=== PATIENT | male | born 1955 | race Caucasian/White ===

== ENCOUNTER 2018-03-03 10:33 | Observation (INO) | payer OTHER ==
[2018-03-03] MEDS ORDERED: NITROGLYCERIN OINT 1 INCH/GM PACKET TOPICAL STA (10:54)
[2018-03-03] MEDS ORDERED: ASPIRIN 81 MG PO STA (10:54)
--- NOTE | 2018-03-03 10:58 | ED ---
General Adult HPI - General Chief complaint: Shortness of Breath Stated complaint: Chest pain Time Seen by Provider: 03/03/18 10:40 Source: EMS, RN notes reviewed Mode of arrival: EMS Limitations: no limitations - History of Present Illness Initial comments: This is a 62-year-old male who is morbidly obese comes into the emergency Department for chest pain today. Patient states he probably has high blood pressure high cholesterol and maybe diabetes pain never goes the doctor to get checked. Patient states today he was short of breath and having some chest pressure went to his doctor's office his blood pressure was extremely high the EMS was called and they gave him nitroglycerin which removed his chest pain shortest breath immediately. Patient states currently he has no symptoms. Patient states the pain and shortness of breath for quite significant at the time but again now they're gone per patient denies any nausea patient denied any diaphoretic episodes. Patient is also morbidly obese. Patient states she has chronic cellulitis of lower legs but he does not follow up for anybody for it. Patient denies any lightheadedness dizziness or near syncopal episode. Patient denies any palpitations. - Related Data Home Medications Medication Instructions Recorded Confirmed Hydrochlorothiazide 25 mg PO DIRECTED 03/03/18 03/03/18 Ibuprofen [Motrin Ib] 400 mg PO Q6H PRN 03/03/18 03/03/18 guaiFENesin [Mucinex] 600 mg PO BID PRN 03/03/18 03/03/18 Allergies Allergy/AdvReac Type Severity Reaction Status Date / Time No Known Allergies Allergy Verified 03/03/18 11:33 Review of Systems ROS Statement: Those systems with pertinent positive or pertinent negative responses have been documented in the HPI. ROS Other: All systems not noted in ROS Statement are negative. Past Medical History Past Medical History: Hyperlipidemia, Hypertension, Pneumonia History of Any Multi-Drug Resistant Organisms: None Reported Past Surgical History: No Surgical Hx Reported Past Psychological History: No Psychological Hx Reported Smoking Status: Never smoker Past Alcohol Use History: None Reported Past Drug Use History: None Reported General Exam - General Exam Comments Initial Comments: GENERAL: Patient is well-developed and well-nourished. Patient is nontoxic and well- hydrated and is in no acute distress. ENT: Neck is soft and supple. No significant lymphadenopathy is noted. Oropharynx is clear. Moist mucous membranes. Neck has full range of motion without eliciting any pain. EYES: The sclera were anicteric and conjunctiva were pink and moist. Extraocular movements were intact and pupils were equal round and reactive to light. Eyelids were unremarkable. PULMONARY: Unlabored respirations. Good breath sounds bilaterally. No audible rales rhonchi or wheezing was noted. CARDIOVASCULAR: There is a regular rate and rhythm without any murmurs gallops or rubs. ABDOMEN: Soft and nontender with normal bowel sounds. Patient is morbidly obese No palpable organomegaly was noted. There is no palpable pulsatile mass. SKIN: Skin is clear with no lesions or rashes and otherwise unremarkable. NEUROLOGIC: Patient is alert and oriented x3. Cranial nerves II through XII are grossly intact. Motor and sensory are also intact. Normal speech, volume and content. Symmetrical smile. MUSCULOSKELETAL: Normal extremities with adequate strength and full range of motion. Patient has chronic sinusitis bilaterally no acute tenderness LYMPHATICS: No significant lymphadenopathy is noted PSYCHIATRIC: Normal psychiatric evaluation. Limitations: no limitations Course Vital Signs 03/03/18 03/03/18 10:38 10:41 Temperature 97.6 F Pulse Rate 88 Respiratory 16 16 Rate Blood Pressure 209/103 O2 Sat by Pulse 98 Oximetry Medical Decision Making - Medical Decision Making EKG shows normal sinus rhythm at 82 bpm OK interval 298 QRS is under 18 QT interval is 424 QTC is 495 per patient's EKG shows no ST segment elevation or depression or T wave abnormalities are noted. Chest x-ray showed a possible right lower lobe infiltrate however the patient was asymptomatic and had no white count or fever I spoke with Dr. Acosta about this and that I wasn't going to initially treat the patient but was going to start the patient heparin for the chest pain that the patient has had. I labeled the patient has an unstable angina patient. - Lab Data Result diagrams: 03/03/18 11:18 03/03/18 11:18 Lab Results 03/03/18 03/03/18 03/03/18 Range/Units 11:18 11:18 11:18 WBC 8.7 (3.8-10.6) k/uL RBC 4.86 (4.30-5.90) m/uL Hgb 13.3 (13.0-17.5) gm/dL Hct 40.0 (39.0-53.0) % MCV 82.4 (80.0-100.0) fL MCH 27.5 (25.0-35.0) pg MCHC 33.3 (31.0-37.0) g/dL RDW 16.2 H (11.5-15.5) % Plt Count 262 (150-450) k/uL Neutrophils % 73 % Lymphocytes % 16 % Monocytes % 5 % Eosinophils % 2 % Basophils % 1 % Neutrophils # 6.4 (1.3-7.7) k/uL Lymphocytes # 1.4 (1.0-4.8) k/uL Monocytes # 0.4 (0-1.0) k/uL Eosinophils # 0.2 (0-0.7) k/uL Basophils # 0.0 (0-0.2) k/uL Poikilocytosis Slight Anisocytosis Slight PT (9.0-12.0) sec INR (<1.2) APTT (22.0-30.0) sec Sodium 141 (137-145) mmol/L Potassium 4.2 (3.5-5.1) mmol/L Chloride 106 (98-107) mmol/L Carbon Dioxide 27 (22-30) mmol/L Anion Gap 8 mmol/L BUN 16 (9-20) mg/dL Creatinine 0.70 (0.66-1.25) mg/dL Est GFR (CKD-EPI)AfAm >90 (>60 ml/min/1.73 sqM) Est GFR (CKD-EPI)NonAf >90 (>60 ml/min/1.73 sqM) Glucose 127 H (74-99) mg/dL Calcium 9.2 (8.4-10.2) mg/dL Magnesium 1.8 (1.6-2.3) mg/dL Total Bilirubin 0.9 (0.2-1.3) mg/dL AST 18 (17-59) U/L ALT 27 (21-72) U/L Alkaline Phosphatase 86 (38-126) U/L Total Creatine Kinase 78 (55-170) U/L CK-MB (CK-2) 1.0 (0.0-2.4) ng/mL CK-MB (CK-2) Rel Index 1.3 Troponin I 0.032 (0.000-0.034) ng/mL Total Protein 7.0 (6.3-8.2) g/dL Albumin 3.7 (3.5-5.0) g/dL 03/03/18 Range/Units 11:18 WBC (3.8-10.6) k/uL RBC (4.30-5.90) m/uL Hgb (13.0-17.5) gm/dL Hct (39.0-53.0) % MCV (80.0-100.0) fL MCH (25.0-35.0) pg MCHC (31.0-37.0) g/dL RDW (11.5-15.5) % Plt Count (150-450) k/uL Neutrophils % % Lymphocytes % % Monocytes % % Eosinophils % % Basophils % % Neutrophils # (1.3-7.7) k/uL Lymphocytes # (1.0-4.8) k/uL Monocytes # (0-1.0) k/uL Eosinophils # (0-0.7) k/uL Basophils # (0-0.2) k/uL Poikilocytosis Anisocytosis PT 10.2 (9.0-12.0) sec INR 1.0 (<1.2) APTT 26.9 (22.0-30.0) sec Sodium (137-145) mmol/L Potassium (3.5-5.1) mmol/L Chloride (98-107) mmol/L Carbon Dioxide (22-30) mmol/L Anion Gap mmol/L BUN (9-20) mg/dL Creatinine (0.66-1.25) mg/dL Est GFR (CKD-EPI)AfAm (>60 ml/min/1.73 sqM) Est GFR (CKD-EPI)NonAf (>60 ml/min/1.73 sqM) Glucose (74-99) mg/dL Calcium (8.4-10.2) mg/dL Magnesium (1.6-2.3) mg/dL Total Bilirubin (0.2-1.3) mg/dL AST (17-59) U/L ALT (21-72) U/L Alkaline Phosphatase (38-126) U/L Total Creatine Kinase (55-170) U/L CK-MB (CK-2) (0.0-2.4) ng/mL CK-MB (CK-2) Rel Index Troponin I (0.000-0.034) ng/mL Total Protein (6.3-8.2) g/dL Albumin (3.5-5.0) g/dL Critical Care Time Critical Care Time: Yes Total Critical Care Time: 35 Disposition Clinical Impression: Unstable angina, Hypertensive urgency Disposition: ADMITTED IP TO THIS HOSP Referrals: Sedrick Quintero MD [Primary Care Provider] - 1-2 days Time of Disposition: 12:44
[2018-03-03 11:43] LABS: Anisocytosis Slight; Basophils % (A) 1 %; Eosinophils # (A) 0.2 k/uL (0-0.7); Eosinophils % (A) 2 %; HGB 13.3 gm/dL (13.0-17.5); Lymphocytes # (A) 1.4 k/uL (1.0-4.8); Lymphocytes % (A) 16 %; MCH 27.5 pg (25.0-35.0); MCHC 33.3 g/dL (31.0-37.0); MCV 82.4 fL (80.0-100.0); Mean Platelet Volume 6.5; Monocytes # (A) 0.4 k/uL (0-1.0); Monocytes % (A) 5 %; Neutrophils # (A) 6.4 k/uL (1.3-7.7); Neutrophils % (A) 73 %; Platelet Count 262 k/uL (150-450); Poikilocytosis Slight; RBC 4.86 m/uL (4.30-5.90); RDW 16.2 % (11.5-15.5); WBC 8.7 k/uL (3.8-10.6)
[2018-03-03 11:48] LABS: Partial Thromboplastin Time 26.9 sec (22.0-30.0); Prothrombin Time 10.2 sec (9.0-12.0)
[2018-03-03 11:50] LABS: ALT 27 U/L (21-72); AST 18 U/L (17-59); Albumin 3.7 g/dL (3.5-5.0); Alkaline Phosphatase 86 U/L (38-126); Anion Gap 8 mmol/L; Blood Urea Nitrogen 16 mg/dL (9-20); Calcium 9.2 mg/dL (8.4-10.2); Carbon Dioxide 27 mmol/L (22-30); Chloride 106 mmol/L (98-107); Glucose 127 mg/dL (74-99); Magnesium 1.8 mg/dL (1.6-2.3); Potassium 4.2 mmol/L (3.5-5.1); Sodium 141 mmol/L (137-145); Total Bilirubin 0.9 mg/dL (0.2-1.3)
--- NOTE | 2018-03-03 12:14 | XR ---
EXAMINATION TYPE: XR chest 2V DATE OF EXAM: 03/03/2018 COMPARISON: None HISTORY: Shortness of breath and chest pain TECHNIQUE: Frontal and lateral views of the chest are obtained. FINDINGS: There is a right infrahilar and basilar reticular opacity. Coarsened interstitial lung mar kings are seen throughout the lung bases. Cardiomediastinal silhouette is enlarged. No sizable pleura l effusion or pneumothorax osseous structures appear grossly intact. IMPRESSION: Findings suspicious for right lower lobe pneumonia with multifocal atelectasis.
[2018-03-03 12:22] LABS: Troponin I 0.032 ng/mL (0.000-0.034)
[2018-03-03] MEDS ORDERED: hydrALAZINE HCL 20 MG/ML 1 ML VIAL IVP STA (12:29)
[2018-03-03] MEDS ORDERED: NITROGLYCERIN SL TABS 0.4 MG TAB SUBLINGUAL PRN (12:45)
[2018-03-03] MEDS ORDERED: HEPARIN SODIUM,PORCINE 5,000 UNIT/ML 1 ML VIAL IV ONE (12:45)
[2018-03-03] MEDS ORDERED: HEPARIN SOD,PORK IN 0.45% NACL 25,000 UNIT in 0.45% NACL 1 250ML.BAG IV SCH (12:45)
[2018-03-03] MEDS ORDERED: ACETAMINOPHEN TAB 325 MG TAB PO PRN (15:54)
[2018-03-03] MEDS ORDERED: NALOXONE 0.4 MG/ML 1 ML VIAL IV PRN (15:54)
[2018-03-03] MEDS ORDERED: ONDANSETRON 4 MG/2 ML VIAL IVP PRN (15:54)
[2018-03-03] MEDS ORDERED: HYDROcodone/APAP 5-325MG 1 EACH TAB PO PRN (15:54)
--- NOTE | 2018-03-03 16:48 | P.HPIM ---
History of Present Illness H&P Date: 03/03/18 Chief Complaint: SHORTNESS OF BREATH Patient is a 62-year-old male past medical history of untreated hypertension, borderline diabetes, and morbid obesity who presented to the ER at the direction of his primary care physician for EKG abnormalities. Patient reports dyspnea on exertion after having a cold. In the ER he underwent extensive evaluation. His initial EKG showed normal sinus rhythm at a rate of 82 with a HI interval of 189, QRS interval 118 and QTC of [address]-T wave changes. Initial laboratory analysis was unremarkable. Chest x-ray showed a right lower lobe infiltrate. His initial blood pressure on arrival to the ER was 209/103. He ER he received a dose of aspirin. Heparin. And had Nitropaste placed. He continued to struggle with dyspnea. Patient seen and examined at bedside ER. He reports that he has been struggling with nasal congestion, runny nose, phlegm, and cough for 2 weeks. He states that his congestion and runny nose with gotten better however his dyspnea on exertion has not improved and may have worsened slightly. He continues to have an intermittent cough that is productive of yellow to brown sputum. He reports increasing bilateral lower extremity edema 1 week. He has not recently been on any antibiotics. He denies any fevers or chills. He has not had a flu shot this year. He has not had any nausea, vomiting, diarrhea, constipation, or dysuria. He denies any throat sore throat or postnasal drip. He has chronic venous stasis on his bilateral lower extremities. He denies any chronic wounds. He has not had any Dopplers recently. He reports no chest pain , palpitations, lightheadedness, dizziness, or syncopal events. He had been to the doctor in quite some time but today he went and saw the nurse practitioner at Dr. Walden's office. There they preformed EKG and found an abnormality and sent him to the hospital. Review of Systems Pertinent positives and negatives as discussed in HPI, a complete review of systems was performed and all other systems are negative. Past Medical History Past Medical History: Hypertension Additional Past Medical History / Comment(s): HTN- Has not been treated History of Any Multi-Drug Resistant Organisms: None Reported Past Surgical History: No Surgical Hx Reported Past Psychological History: No Psychological Hx Reported Smoking Status: Never smoker Past Alcohol Use History: None Reported Past Drug Use History: None Reported Additional History: Lives with niece, Works selling [employer] - Past Family History Father Family Medical History: Coronary Artery Disease (CAD) ([place] in his 60s) Medications and Allergies Home Medications Medication Instructions Recorded Confirmed Type Hydrochlorothiazide 25 mg PO DIRECTED 03/03/18 03/03/18 History Ibuprofen [Motrin Ib] 400 mg PO Q6H PRN 03/03/18 03/03/18 History guaiFENesin [Mucinex] 600 mg PO BID PRN 03/03/18 03/03/18 History Allergies Allergy/AdvReac Type Severity Reaction Status Date / Time No Known Allergies Allergy Verified 03/03/18 11:33 Physical Exam Osteopathic Statement: *. No significant issues noted on an osteopathic structural exam other than those noted in the History and Physical/Consult. Vitals: Vital Signs Temp Pulse Resp BP Pulse Ox 03/03/18 13:30 81 13 152/95 95 03/03/18 13:00 71 18 178/97 96 03/03/18 12:30 68 18 185/99 95 03/03/18 12:00 81 20 158/123 96 03/03/18 11:30 79 18 206/122 96 03/03/18 11:00 202/126 95 03/03/18 10:45 92 L 03/03/18 10:41 16 03/03/18 10:38 97.6 F 88 16 209/103 98 Intake and Output 03/03/18 03/03/18 03/03/18 06:59 14:59 22:59 Other: Weight 212.735 kg General: non toxic, no distress, appears older than stated age, Obese Derm: keegan and dusky appearance right calf with edema, no unusual ecchymoses, warm, dry Head: atraumatic, normocephalic, symmetric Eyes: EOMI, no lid lag, anicteric sclera, pupils equal round reactive to light ENT: Nose and ears atraumatic, no thrush, no pharyngeal erythema, no PND Neck: No thyromegaly, no cervical lymphadenopathy, trachea midline, supple Mouth: no lip lesion, mucus membranes moist, poor dentition Cardiovascular: S1S2 reg, no murmur, positive posterior tibial pulse bilateral, 2+ edema, capillary refill less than 2 seconds Lungs: decreased bs right base, no rhonchi, no rales , no accessory muscle use Abdominal: soft, nontender to palpation, no guarding, no appreciable organomegaly, normal bowel sounds Ext: no gross muscle atrophy, muscle strength 5 out of 5 in all 4 extremities grossly, no contractures, Neuro: CN II-XI grossly intact, light touch intact all 4 extremities, finger to nose within normal limits, Psych: Alert, oriented, appropriate affect Results CBC & Chem 7: 03/03/18 11:18 03/03/18 11:18 Labs: Abnormal Lab Results - Last 24 Hours (Table) 03/03/18 03/03/18 Range/Units 11:18 11:18 RDW 16.2 H (11.5-15.5) % Glucose 127 H (74-99) mg/dL Chest x-ray: report reviewed, image reviewed Thrombosis Risk Factor Assmnt - DVT/VTE Prophylaxis DVT/VTE Prophylaxis: Pharmacologic Prophylaxis ordered - Choose All That Apply Each Factor Represents 1 point: Age 41-60 years, Obesity (BMI >25), Swollen legs (current) Thrombosis Risk Factor Assessment Total Risk Factor Score: 3 Thrombosis Risk Factor Assessment Level: Moderate Risk Assessment and Plan Assessment: Community-acquired pneumonia -Rocephin, doxycycline secondary to prolonged QT will avoid Zithromax at this point in time -IV fluids -Sputum culture -Follow chest x-ray until clear Dyspnea on exertion -Check CTA of the chest to rule out pulmonary embolism as additional possible source of dyspnea as well as eliminating other causes of dyspnea -Check echo to rule out CHF or valvular disease Prolonged QT -Telemetry -Cardiology consult Hypertensive urgency -Improved with nitro patch -Initiate norvasc - follow BP Morbid obesity - sructured outpatient weight loss Probable PVD - outpatient ardio follow-up for KEISHA The patient is admitted with an anticipated greater than 2 midnight stay for evaluation of pneumonia. Surrogate decision-maker: Niece CODE STATUS: Full, no trach or prolonged ventilation DVT prophylaxis: Lovenox Discussed with: Patient, ED physician Anticipated discharge date: 1-[address]: home A total of 45 minutes was spent on the care of this complex patient more than 50 % of the time was spent in counseling and care coordination.
[2018-03-03] MEDS: SODIUM CHLORIDE 0.9% 1,000 ML IV SCH (16:49)
[2018-03-03 18:00] LABS: Troponin I 0.027 ng/mL (0.000-0.034)
--- NOTE | 2018-03-03 19:23 | CT ---
EXAMINATION TYPE: CT angio chest DATE OF EXAM: 03/03/2018 5:35 PM COMPARISON: None HISTORY: SOB, unstable angina CT DLP: 1138.2 mGycm Automated exposure control for dose reduction was used. CONTRAST: CTA scan of the thorax is performed with IV Contrast, patient injected with 100 mL of Isovue 300, pul monary embolism protocol. . FINDINGS: There are 3-D post processed images. There are a few paratracheal lymph nodes that measure up to 1 cm. There are no hilar masses. There is no pericardial effusion. There is patchy atelectasis and infiltrate at the posterior lung bases. The re is mild pleural thickening right lung base. There is a 1 cm area of focal pleural thickening left posterior lung base. There is normal contrast opacification of the pulmonary arteries. I see no filling defect. . The asce nding aorta measures 4.5 cm. There is no evidence of aortic dissection. There is spurring in the thoracic spine. I see no bony destructive process. IMPRESSION: NO EVIDENCE OF PULMONARY EMBOLISM. MILD INFILTRATE AND ATELECTASIS AT THE LUNG BASES WITH PLEURAL THI CKENING. THIS IS WORSE ON THE RIGHT SIDE.
[2018-03-03] MEDS: NITROGLYCERIN OINT 1 INCH/GM PACKET TOPICAL SCH ×2 (19:24→23:03)
[2018-03-03] MEDS ORDERED: hydrALAZINE HCL 25 MG TAB PO STA ×2 (20:43→23:10)
[2018-03-03] MEDS: DOXYCYCLINE 100 MG CAP PO SCH (21:45)
[2018-03-04 00:24] LABS: Troponin I 0.023 ng/mL (0.000-0.034)
[2018-03-04] MEDS: SODIUM CHLORIDE 0.9% 1,000 ML IV SCH (00:51)
[2018-03-04] MEDS: NITROGLYCERIN OINT 1 INCH/GM PACKET TOPICAL SCH ×2 (04:59→11:15)
[2018-03-04 07:04] LABS: Anisocytosis Slight; HCT 36.7 % (39.0-53.0); HGB 12.1 gm/dL (13.0-17.5); MCH 27.3 pg (25.0-35.0); MCV 82.9 fL (80.0-100.0); Platelet Count 249 k/uL (150-450); Poikilocytosis Slight; RBC 4.43 m/uL (4.30-5.90); RDW 16.2 % (11.5-15.5); WBC 12.5 k/uL (3.8-10.6)
[2018-03-04 07:17] LABS: Anion Gap 9 mmol/L; Blood Urea Nitrogen 12 mg/dL (9-20); Carbon Dioxide 22 mmol/L (22-30); Chloride 103 mmol/L (98-107); Cholesterol 181 mg/dL (<200); Glucose 127 mg/dL (74-99); HDL Cholesterol 37 mg/dL (40-60); LDL Cholesterol,Calculated 119 mg/dL (0-99); Magnesium 1.7 mg/dL (1.6-2.3); Phosphorus 3.4 mg/dL (2.5-4.5); Sodium 134 mmol/L (137-145); Triglycerides 126 mg/dL (<150)
[2018-03-04] MEDS: ENOXAPARIN 40 MG/0.4 ML SYRINGE SQ SCH (08:40)
[2018-03-04] MEDS ORDERED: METOPROLOL TARTRATE 25 MG TAB PO SCH (09:00)
[2018-03-04] MEDS ORDERED: amLODIPine 5 MG TAB PO SCH (09:00)
[2018-03-04] MEDS ORDERED: ASPIRIN 325 MG TAB PO SCH (09:00)
--- NOTE | 2018-03-04 11:14 | ECHOF ---
Referral Reason:chf MEASUREMENTS -------- HEIGHT: 193.0 cm WEIGHT: 212.7 kg BP: 152/95 RVIDd: 2.6 cm (< 3.3) IVSd: 1.6 cm (0.6 - 1.1) LVIDd: 5.9 cm (3.9 - 5.3) LVPWd: 1.6 cm (0.6 - 1.1) IVSs: 1.8 cm LVIDs: 4.2 cm LVPWs: 1.9 cm Ao Diam: 3.0 cm (2.0 - 3.7) AV Cusp: 1.2 cm (1.5 - 2.6) LA Diam: 3.1 cm (2.7 - 3.8) MV E Tiago: 0.88 m/s MV DecT: 397 ms MV A Tiago: 1.16 m/s MV E/A Ratio: 0.75 AV maxP.57 mmHg AV meanP.25 mmHg RAP: 15.00 mmHg RVSP: 21.30 mmHg MV EF SLOPE: 107.25 mm/s (70 - 150) MV EXCURSION: 1.68 cm (> 18.000) FINDINGS -------- Sinus rhythm. This was a technically difficult study with suboptimal views. The left ventricular size is normal. There is moderate concentric left ventricular hypertrophy. O verall left ventricular systolic function is normal with, an EF between 55 - 60 %. The right ventricle is normal in size and function. Normal LA size by volume 22+/-6 ml/m2. RA appears enlarged. 3 ml of Lumason was utilized for enhancement of images. There is mild aortic valve sclerosis. There is no evidence of aortic regurgitation. There is mild aortic stenosis present. Peak/mean gradient across the Aortic Valve is 15.57mmHg / 8.25mmHg. The mitral valve leaflets are mildly thickened. Mild mitral regurgitation is present. Trace tricuspid regurgitation present. Right ventricular systolic pressure is normal at < 35 mmHg. There is no evidence of pulmonary hypertension. The pulmonic valve was not well visualized. The aortic root size is normal. The inferior vena cava is dilated with poor inspiratory collapse which is consistent with estimated r ight atrial pressure of 20 mmHg. There is no pericardial effusion. CONCLUSIONS -------- 1. Sinus rhythm. 2. This was a technically difficult study with suboptimal views. 3. The left ventricular size is normal. 4. There is moderate concentric left ventricular hypertrophy. 5. Overall left ventricular systolic function is normal with, an EF between 55 - 60 %. 6. Normal LA size by volume 22+/-6 ml/m2. 7. RA appears enlarged. 8. 3 ml of Lumason was utilized for enhancement of images. 9. There is mild aortic valve sclerosis. 10. There is mild aortic stenosis present. 11. Peak/mean gradient across the Aortic Valve is 15.57mmHg / 8.25mmHg. 12. The mitral valve leaflets are mildly thickened. 13. Mild mitral regurgitation is present. 14. Trace tricuspid regurgitation present. 15. Right ventricular systolic pressure is normal at < 35 mmHg. 16. There is no evidence of pulmonary hypertension. 17. The pulmonic valve was not well visualized. 18. The aortic root size is normal. 19. The inferior vena cava is dilated with poor inspiratory collapse which is consistent with estimat ed right atrial pressure of 20 mmHg. 20. There is no pericardial effusion. SLAB WORKER: Navid Bowser RDCS
[2018-03-04] MEDS: DOXYCYCLINE 100 MG CAP PO SCH ×2 (11:15→19:56)
--- NOTE | 2018-03-04 12:30 | P.CRDCN ---
History of Present Illness History of present illness: This is Dr. Acuña dictating a consult on this patient The patient was interviewed and examined by me IMPRESSION / ASSESSMENT: Uncontrolled hypertension Morbid obesity Dyslipidemia Normal cardiac enzymes are normal ECG and normal absolute QT interval PLAN: Losartan 50 mrem daily Dyazide one capsule daily Aspirin 81 mg daily Atorvastatin 20 mg by mouth daily Maximize antihypertensive therapy Follow Dr. Hendrix as an outpatient HPI Patient presented with shortness of breath and chest pressure cough expectoration and has been diagnosed with pneumonitis. He also has elevated blood pressure readings. He takes diuretics for hypertension Past history of hypertension dyslipidemia and morbid obesity Never smoker ROS: No fever chills or rigors, no cough, phlegm or expectoration, no nausea, vomiting or diarrhea, no hematuria, dysuria, no musculoskeletal complaints, no strokes or seizures, no skin lesions. EXAMINATION: He is sitting in a chair Aleta short of breath Afebrile pulse rate in the 70s blood pressure 160 several 101 170 70 111 mmHg Breath sounds are reduced bilaterally with crackles at the bases Heart sounds are distant soft Abdomen is soft Bilateral brawny edema in the lower extremities REVIEW OF LABS, ECG & MEDICAL DATA Twelve-lead ECG shows sinus rhythm normal [place] narrow QRS normal ST segments QT interval absolute is normal Sodium 134 potassium 4.0 BUN 12 creatinine 0.6 Normal troponins LDL 119 HDL 37, triglycerides 126 and total. I'll 191 Past Medical History Past Medical History: No Reported History Additional Past Medical History / Comment(s): pt states no medical problems. pt stated that he would like the flu/pne vaccine before discharge if ok with dr. History of Any Multi-Drug Resistant Organisms: None Reported Past Surgical History: No Surgical Hx Reported Past Anesthesia/Blood Transfusion Reactions: No Reported Reaction Additional Past Anesthesia/Blood Transfusion Reaction / Comment(s): has never recieved any blood transfusions Smoking Status: Never smoker - Past Family History Father Family Medical History: Coronary Artery Disease (CAD), Diabetes Mellitus Additional Family Medical History / Comment(s): stomach ulcers Mother Family Medical History: CVA/TIA Medications and Allergies Home Medications Medication Instructions Recorded Confirmed Type Hydrochlorothiazide 25 mg PO DIRECTED 03/03/18 03/03/18 History Ibuprofen [Motrin Ib] 400 mg PO Q6H PRN 03/03/18 03/03/18 History guaiFENesin [Mucinex] 600 mg PO BID PRN 03/03/18 03/03/18 History Allergies Allergy/AdvReac Type Severity Reaction Status Date / Time No Known Allergies Allergy Verified 03/03/18 11:33 Physical Exam Vitals: Vital Signs Temp Pulse Pulse Resp BP BP Pulse Ox 03/04/18 11:26 98.2 F 74 18 177/111 97 03/04/18 08:00 97.7 F 78 18 167/101 97 03/04/18 04:00 98.0 F 86 18 168/76 94 L 03/04/18 01:49 175/92 03/04/18 00:24 90 18 185/104 95 03/03/18 23:17 90 16 03/03/18 23:15 97.9 F 90 16 183/104 96 03/03/18 22:26 92 16 190/94 95 03/03/18 21:53 89 19 03/03/18 21:52 97.9 F 89 18 203/104 95 03/03/18 20:30 94 17 193/118 93 L 03/03/18 20:00 93 9 L 191/112 94 L 03/03/18 19:00 84 9 L 181/110 96 03/03/18 18:30 84 179/103 95 03/03/18 18:00 83 199/103 95 03/03/18 17:30 157/115 03/03/18 17:00 176/107 95 03/03/18 16:30 82 173/92 03/03/18 16:00 83 12 189/116 94 L 03/03/18 15:30 85 96 03/03/18 15:00 86 16 187/91 03/03/18 14:30 86 19 171/105 96 03/03/18 14:00 83 10 L 184/104 95 03/03/18 13:30 81 13 152/95 95 03/03/18 13:00 71 18 178/97 96 Intake and Output 03/03/18 03/04/18 03/04/18 22:59 06:59 14:59 Intake Total 200 240 Balance 200 240 Intake: Oral 200 240 Other: Voiding Method Toilet Toilet Toilet Weight 212.1 kg Results 03/04/18 06:23 03/04/18 06:23 Cardiac Enzymes 03/03/18 03/03/18 Range/Units 15:59 23:33 CK-MB (CK-2) 1.0 1.0 (0.0-2.4) ng/mL Troponin I 0.027 0.023 (0.000-0.034) ng/mL Coagulation 03/03/18 Range/Units 20:30 APTT 28.9 (22.0-30.0) sec Lipids 03/04/18 Range/Units 06:23 Triglycerides 126 (<150) mg/dL Cholesterol 181 (<200) mg/dL HDL Cholesterol 37 L (40-60) mg/dL CBC 03/04/18 Range/Units 06:23 WBC 12.5 H (3.8-10.6) k/uL RBC 4.43 (4.30-5.90) m/uL Hgb 12.1 L (13.0-17.5) gm/dL Hct 36.7 L (39.0-53.0) % Plt Count 249 (150-450) k/uL Comprehensive Metabolic Panel 03/04/18 Range/Units 06:23 Sodium 134 L (137-145) mmol/L Potassium 4.0 (3.5-5.1) mmol/L Chloride 103 (98-107) mmol/L Carbon Dioxide 22 (22-30) mmol/L BUN 12 (9-20) mg/dL Creatinine 0.58 L (0.66-1.25) mg/dL Glucose 127 H (74-99) mg/dL Calcium 9.0 (8.4-10.2) mg/dL Current Medications Generic Name Dose Route Start Last Admin Trade Name Freq PRN Reason Stop Dose Admin Acetaminophen 650 mg 03/03/18 15:54 03/03/18 22:24 Tylenol Tab PO 650 mg Q6HR PRN Administration Mild Pain or Fever > 100.5 Hydrocodone Bitart/Acetaminophen 1 each 03/03/18 15:54 [place] 5-325 PO Q4HR PRN Moderate Pain Aspirin 81 mg 03/05/18 09:00 Aspirin PO DAILY [facility] Atorvastatin Calcium 20 mg 03/05/18 09:00 Lipitor PO DAILY [facility] Doxycycline Monohydrate 100 mg 03/03/18 21:00 03/04/18 11:15 Vibramycin PO 100 mg BID JULIAN Administration Enoxaparin Sodium 40 mg 03/04/18 09:00 03/04/18 08:40 Lovenox SQ 40 mg DAILY JULIAN Administration Ceftriaxone Sodium 1,000 mg/ 50 mls @ 100 mls/hr 03/03/18 16:00 03/04/18 08: 40 Sodium Chloride IVPB 100 mls/hr Q24HR JULIAN Administration Losartan Potassium 50 mg 03/04/18 12:30 Cozaar PO DAILY JULIAN Naloxone HCl 0.2 mg 03/03/18 15:54 Narcan IV Q2M PRN Opioid Reversal Nitroglycerin 0.4 mg 03/03/18 12:45 Nitrostat SUBLINGUAL Q5M PRN Chest Pain Ondansetron HCl 4 mg 03/03/18 15:54 Zofran IVP Q8HR PRN Nausea And Vomiting Triamterene/HCTZ 1 each 03/04/18 12:30 Dyazide PO DAILY JULIAN Intake and Output 03/03/18 03/04/18 03/04/18 22:59 06:59 14:59 Intake Total 200 240 Balance 200 240 Intake: Oral 200 240 Other: Voiding Method Toilet Toilet Toilet Weight 212.1 kg 03/04/18 06:23 03/04/18 06:23
[2018-03-04] MEDS: LOSARTAN 50 MG TAB PO SCH (13:03)
[2018-03-04] MEDS: TRIAMTERENE-HCTZ 37.5-25MG 1 EACH CAP PO SCH (13:03)
--- NOTE | 2018-03-04 17:26 | P.PN ---
Subjective Progress Note Date: 03/04/18 (Delayed charting patient seen at 0815) Principal diagnosis: shortness of breath Patient is a 62-year-old male past medical history of untreated hypertension, borderline diabetes, and morbid obesity who presented to the ER at the direction of his primary care physician for EKG abnormalities. Patient reports dyspnea on exertion after having a cold. In the ER he underwent extensive evaluation. His initial EKG showed normal sinus rhythm at a rate of [address] interval of 189, QRS interval 118 and QTC of [address]-T wave changes. Initial laboratory analysis was unremarkable. Chest x-ray showed a right lower lobe infiltrate. His initial blood pressure on arrival to the ER was 209/103. He ER he received a dose of aspirin. Heparin. And had Nitropaste placed. He continued to struggle with dyspnea. Chest x-ray reports reviewed and was consistent with pneumonia. He was placed on Zithromax and Rocephin. He underwent the chest which was negative for pulmonary embolism but showed bilateral infiltrates with atelectasis. On the morning after admission on 03/04 his white blood cell count increased slightly to 12.1. He underwent echocardiogram which showed LVH but had ejection fraction 55 percent. Seen by cardiology and his antihypertensive medications were adjusted to lisinopril and triamterene/hydrochlorothiazide. Patient seen and examined at bedside. He is feeling much better. Breathing improved from admission. Still having some nasal congestion. No nausea or vomiting. Had bowel movement yesterday. Overall feeling well. Objective - Vital Signs Vital signs: Vital Signs Temp 98.4 F 03/04/18 16:00 Pulse 88 03/04/18 16:00 Resp 18 03/04/18 16:00 BP 182/99 03/04/18 16:00 Pulse Ox 97 03/04/18 16:00 Intake & Output 03/03/18 03/04/18 03/04/18 18:59 06:59 18:59 Intake Total 200 600 Balance 200 600 Weight 212.735 kg 212.1 kg Intake: Oral 200 600 Other: Voiding Method Toilet Toilet # Voids 2 - Exam General: Ill-appearing, morbidly obese, appears older than stated age, no distress Derm: warm, dry Head: atraumatic, normocephalic, symmetric Eyes: EOMI, no lid lag, anicteric sclera Mouth: no lip lesion, mucus membranes moist Cardiovascular: S1S2 reg, no murmur, positive posterior tibial pulse bilateral, Lungs: Rhonchi right base, no accessory muscle use Abdominal: soft, nontender to palpation, no guarding, no appreciable organomegaly Ext: no gross muscle atrophy, 3+ edema, no contractures Neuro: CN II-XI grossly intact, no focal neuro deficits Psych: Alert, oriented, appropriate affect - Labs CBC & Chem 7: 03/04/18 06:23 03/04/18 06:23 Labs: Abnormal Lab Results - Last 24 Hours (Table) 03/04/18 03/04/18 Range/Units 06:23 06:23 WBC 12.5 H (3.8-10.6) k/uL Hgb 12.1 L (13.0-17.5) gm/dL Hct 36.7 L (39.0-53.0) % RDW 16.2 H (11.5-15.5) % Sodium 134 L (137-145) mmol/L Creatinine 0.58 L (0.66-1.25) mg/dL Glucose 127 H (74-99) mg/dL LDL Cholesterol, Calc 119 H (0-99) mg/dL HDL Cholesterol 37 L (40-60) mg/dL Assessment and Plan Assessment: Community-acquired pneumonia -Rocephin, doxycycline s -Stop IV fluids -Sputum culture -Follow chest x-ray until clear Prolonged QT -Telemetry -Cardiology Qt normal Hypertensive urgency - LVH on echo, preserved EF 55% -cardio: loartan, dyazide - follow BP Morbid obesity - sructured outpatient weight loss Probable PVD - outpatient ardio follow-up for KEISHA DVT prophylaxis: Lovenox Discussed with: Patient, nursing Anticipated discharge date: [address]: home A total of 25 minutes was spent on the care of this complex patient more than 50 % of the time was spent in counseling and care coordination.
[2018-03-05 06:44] LABS: Anisocytosis Slight; HCT 39.6 % (39.0-53.0); HGB 12.9 gm/dL (13.0-17.5); MCH 27.5 pg (25.0-35.0); MCHC 32.7 g/dL (31.0-37.0); MCV 84.3 fL (80.0-100.0); Mean Platelet Volume 6.7; Platelet Count 239 k/uL (150-450); RDW 16.5 % (11.5-15.5); WBC 9.4 k/uL (3.8-10.6)
--- NOTE | 2018-03-05 06:46 | XR ---
EXAMINATION TYPE: XR chest 2V DATE OF EXAM: 03/05/2018 HISTORY: pneumonia. REFERENCE: Previous study dated 03/03/2018. FINDINGS: The lungs are overinflated. The heart is upper limits of normal in size. There is a partial clearing of the right lung base. Some residual opacity persists. IMPRESSION: 1. COPD. 2. BORDERLINE CARDIOMEGALY. 3. PARTIAL CLEARING, RIGHT LUNG BASE.
[2018-03-05 06:53] LABS: Anion Gap 7 mmol/L; Blood Urea Nitrogen 13 mg/dL (9-20); Calcium 9.1 mg/dL (8.4-10.2); Carbon Dioxide 23 mmol/L (22-30); Chloride 107 mmol/L (98-107); Glucose 123 mg/dL (74-99); Magnesium 1.8 mg/dL (1.6-2.3); Potassium 4.1 mmol/L (3.5-5.1); Sodium 137 mmol/L (137-145)
[2018-03-05] MEDS: LOSARTAN 50 MG TAB PO SCH (08:31)
[2018-03-05] MEDS: DOXYCYCLINE 100 MG CAP PO SCH (08:31)
[2018-03-05] MEDS: TRIAMTERENE-HCTZ 37.5-25MG 1 EACH CAP PO SCH (08:31)
[2018-03-05] MEDS: ENOXAPARIN 40 MG/0.4 ML SYRINGE SQ SCH (08:31)
[2018-03-05 08:38] VITALS: BP 159/91; PULSE 89; RESP 16; TEMP 97
[2018-03-05] MEDS ORDERED: ATORVASTATIN 20 MG TAB PO SCH (09:00)
[2018-03-05] MEDS ORDERED: ASPIRIN 81 MG PO SCH (09:00)
--- NOTE | 2018-03-05 10:06 | P.DS ---
Providers Date of admission: 03/03/18 13:41 Expected date of discharge: 03/05/18 Attending physician: Romy Acosta DO Consults: 03/03/18 12:45 Consult Physician Urgent Consulting Provider: [facility] Consult Reason/Comments: Unstable angina Do you want consulting provider notified?: Yes Primary care physician: Sedrick Quintero Hospital Course: Discharge Diagnosis: Community-acquired pneumonia Hypertensive urgency Left ventricular hypertrophy Morbid obesity- BMP 55.7 Probable peripheral vascular disease Prolonged QT, seen and cleared by Hospital Course: Patient is a 62-year-old male past medical history of untreated hypertension, borderline diabetes, and morbid obesity who presented to the ER at the direction of his primary care physician for EKG abnormalities. Patient reports dyspnea on exertion after having a cold. In the ER he underwent extensive evaluation. His initial EKG showed normal sinus rhythm at a rate of 82 with a [place] interval of 189, QRS interval 118 and QTC of [address]-T wave changes. Initial laboratory analysis was unremarkable. Chest x-ray showed a right lower lobe infiltrate. His initial blood pressure on arrival to the ER was 209/103. He ER he received a dose of aspirin. Heparin. And had Nitropaste placed. He continued to struggle with dyspnea. Chest x-ray reports reviewed and was consistent with pneumonia. He was placed on Zithromax and Rocephin. He underwent the chest which was negative for pulmonary embolism but showed bilateral infiltrates with atelectasis. On the morning after admission on 03/04 his white blood cell count increased slightly to 12.1. He underwent echocardiogram which showed LVH but had ejection fraction 55 percent. Seen by cardiology and his antihypertensive medications were adjusted to lisinopril and triamterene/hydrochlorothiazide. His blood pressure improved greatly with an acceptable change for time being. I discussed with the patient that he will need to follow closely with his PCP and cardio for further adjustments in his blood pressure medications. His chest x-ray is already improving. He will complete 5 days of antibiotic therapy for his community acquired pnemonia. He would benefit from Repeat chest x-ray in 1week, with blood pressure monitoring, and repeat blood work with BMP to check your kidney function and potassium levels Repeat chest x-ray in 1week, with blood pressure monitoring, and repeat blood work with BMP to check kidney function and potassium levels. All RX sent to [facility]. Patient seen and examined at bedside.Breathing much improved. Able to preform 2 labs around the halls. No chest pain, no nausea, no vomiting, Vital signs reviewed and stable. General: non toxic, no distress, appears at stated age, obese Derm: red keegan appearcne b/l pretibial are warm, dry Head: atraumatic, normocephalic, symmetric Eyes: EOMI, no lid lag, anicteric sclera Mouth: no lip lesion, mucus membranes moist Cardiovascular: S1S2 reg, no murmur, positive posterior tibial pulse bilateral, Lungs: decrease bs b/l bases bilateral, no rhonchi, no rales , no accessory muscle use Abdominal: soft, nontender to palpation, no guarding, no appreciable organomegaly Ext: no gross muscle atrophy, no edema, no contractures Neuro: CN II-XI grossly intact, no focal neuro deficits Psych: Alert, oriented, appropriate affect A total of 45 minutes of time were spent preparing this complex discharge summary . Pertinent Studies: Echocardiogram-ejection fraction 55-60%, moderate concentric LVH CTA of the chest- No pulmonary embolism, mild inflitrate b/l worse on the right , aortic aneurysm 4.5 cm arch without dissection. Patient Condition at Discharge: Good Plan - Discharge Summary Discharge Rx Participant: No New Discharge Prescriptions: New Aspirin 81 mg PO DAILY #0 chew Atorvastatin [Lipitor] 20 mg PO HS #30 tab Cefdinir 300 mg PO Q12HR #8 cap Doxycycline [Vibramycin] 100 mg PO BID #8 cap Losartan [Cozaar] 50 mg PO DAILY #30 tab Triamterene-Hctz 37.5-25Mg [Dyazide 37.5-25 Capsule] 1 each PO DAILY #30 cap Continue guaiFENesin [Mucinex] 600 mg PO BID PRN PRN Reason: Cough Ibuprofen [Motrin Ib] 400 mg PO Q6H PRN PRN Reason: Pain Discontinued Hydrochlorothiazide 25 mg PO DIRECTED Discharge Medication List Ibuprofen [Motrin Ib] 400 mg PO Q6H PRN 03/03/18 [History] guaiFENesin [Mucinex] 600 mg PO BID PRN 03/03/18 [History] Aspirin 81 mg PO DAILY #0 chew 03/05/18 [Rx] Atorvastatin [Lipitor] 20 mg PO HS #30 tab 03/05/18 [Rx] Cefdinir 300 mg PO Q12HR #8 cap 03/05/18 [Rx] Doxycycline [Vibramycin] 100 mg PO BID #8 cap 03/05/18 [Rx] Losartan [Cozaar] 50 mg PO DAILY #30 tab 03/05/18 [Rx] Triamterene-Hctz 37.5-25Mg [Dyazide 37.5-25 Capsule] 1 each PO DAILY #30 cap 07/17 [Rx] Follow up Appointment(s)/Referral(s): Nhan Acuña MD [STAFF PHYSICIAN] - 3 Weeks (Follow with Dr. Hendrix in 2-3 weeks) Sedrick Quintero MD [Primary Care Provider] - 1-2 days Activity/Diet/Wound Care/Special Instructions: heart healthy diet Activity as tolerated Repeat chest x-ray in 1week, with blood pressure monitoring, and repeat blood work with BMP to check your kidney function and potassium levels Discharge Disposition: HOME SELF-CARE
== END 2018-03-05 11:12 | disposition home or self-care (01) ==
LOC: EC 10:33 → 3SCARD 13:41
PROVIDERS: ADMIT Internal Medicine; ATTEND Internal Medicine
DX: J18.9 Pneumonia, unspecified organism (principal); E66.01 Morbid (severe) obesity due to excess calories; Z68.43 Body mass index [BMI] 50.0-59.9, adult; R73.03 Prediabetes; I71.2 Thoracic aortic aneurysm, without rupture; I45.81 Long QT syndrome; I16.0 Hypertensive urgency; I11.9 Hypertensive heart disease without heart failure; E78.5 Hyperlipidemia, unspecified; Z82.49 Family history of ischemic heart disease and other diseases of the circulatory system; Z83.3 Family history of diabetes mellitus; Z82.3 Family history of stroke; Z79.899 Other long term (current) drug therapy
CPT/HCPCS: 96376 ×2; 96361 ×2; 96366 ×2; 96368; 96365; 96375; 99291; 36415; 93005; 93306; 97162; 80061; 80053; 80048 ×2; 82550; 82553; 83735 ×3; 84100; 84484; 85025; 85027 ×2; 85610; 85730; 71046 ×2; 71275; G0378 ×3; J0360; J1644 ×2; J1650 ×2; J0696 ×3; Q9950; Q9967